=== PATIENT | male | born 1980 | race Hispanic/Latino ===

== ENCOUNTER → 2018-04-30 | Outpatient (CLI) | payer OTHER ==
--- NOTE | 2018-05-01 07:50 | Diagnostic Imaging Report ---
TECHNIQUE: Magnetic resonance imaging of the RIGHT ELBOW was performed WITHOUT injected contrast. HISTORY: Pain COMPARISON: None available. FINDINGS: Ligaments and tendons: The medial and lateral collateral ligament complexes are intact. The common flexor tendon group and common extensor tendon group origins at the humeral epicondyles are intact. Complete tear of the biceps tendon from the radial insertion with approximately 8 cm proximal retraction. Probable disruption of the lacertus fibrosis. No muscle atrophy. Ulnar nerve: Normal, and in groove. Bone and bone marrow: No focal or infiltrative bone marrow replacing abnormality. No acute fracture. Articular cartilage: No focal lesions are seen. Soft tissues: Otherwise, unremarkable. IMPRESSION: Long head biceps tendon complete tear from the radial insertion with proximal retraction. No muscle atrophy. Signed by: Dr. Juaquin Andino M.D. on 05/01/2018 7:46 AM
== END ==
LOC: MRI 16:00
PROVIDERS: ATTEND Family Medicine
DX: S46.211A Strain of muscle, fascia and tendon of other parts of biceps, right arm, initial encounter (principal)